=== PATIENT | female | born 1980 | race Caucasian/White ===

== ENCOUNTER 2020-12-18 21:03 | Emergency (ER) | payer OTHER ==
[~2020-12-18] VITALS: Ht 170.2 cm; Wt 77.1 kg
[~2020-12-18 21:03] MED LIST: PREDNISONE20 MG PO; ZITHROMAX TRI-500 MG PO
[2020-12-18] MEDS ORDERED: KETOROLAC TROMETHAMINE 60 MG/2 ML VIAL IM ONE (21:45)
[2020-12-18] MEDS ORDERED: ONDANSETRON HCL 4 MG ORAL DISINTEGRATING TAB PO ONE (21:45)
[2020-12-18] MEDS ORDERED: METHYLPREDNISOLONE SOD SUCC 125 MG/2ML VIAL IM ONE (21:45)
[2020-12-18] MEDS ORDERED: KETOROLAC TROMETHAMINE 60 MG/2 ML VIAL ONE (22:03)
[2020-12-18] MEDS ORDERED: ONDANSETRON HCL 4 MG ORAL DISINTEGRATING TAB ONE (22:03)
[2020-12-18] MEDS ORDERED: METHYLPREDNISOLONE SOD SUCC 125 MG/2ML VIAL ONE (22:03)
[2020-12-18] MEDS ORDERED: BROMFED DM COU118 ML PO (22:49)
[2020-12-18] MEDS ORDERED: IVERMECTIN3 MG PO (22:49)
[2020-12-18] MEDS ORDERED: PROAIR HFA INH8.5 GM PO (22:49)
[2020-12-18] MEDS ORDERED: AZITHROMYCIN500 MG PO (22:49)
[2020-12-18] MEDS ORDERED: PREDNISONE20 MG PO (22:49)
[2020-12-18] MEDS ORDERED: ALBUTEROL2.5 MG/3 M NEB (22:49)
[2020-12-18 23:15] VITALS: BP 124/84
== END 2020-12-18 23:13 | disposition home or self-care (01) ==
LOC: FSED 21:24
DX: U07.1 COVID-19 (principal); J18.9 Pneumonia, unspecified organism; R05 Cough; J98.01 Acute bronchospasm; R06.02 Shortness of breath
CPT/HCPCS: 71046; 96372; 99283; J1885; J2930; Q0162

== ENCOUNTER 2021-12-26 08:43 | Outpatient (RCR) | payer OTHER ==
[~2021-12-26 08:43] MED LIST changes: +ALBUTEROL2.5 MG/3 M NEB; +AZITHROMYCIN500 MG PO; +BROMFED DM COU118 ML PO; +IVERMECTIN3 MG PO; +PROAIR HFA INH8.5 GM PO
== END 2021-12-31 ==
LOC: OT 08:43
PROVIDERS: ATTEND Plastic Surgery
DX: M18.12 Unilateral primary osteoarthritis of first carpometacarpal joint, left hand (principal); M25.542 Pain in joints of left hand

== ENCOUNTER → 2022-03-12 | Day surgery (SDC) | payer OTHER ==
[~2022-03-12] MED LIST changes: +BUPIVACAINE 0.25% 30ML SDV ONE; +BUPIVACAINE HCL 0.5% 10ML MPF VIAL INJ ONE; +DEXAMETHASONE SOD PHOS INJ 4 MG/ML SDV ONE; +FENTANYL CITRATE/PF 100MCG/2 ML INJ ONE; +HYDROCODON-ACE1 EA11 PO; +KETOROLAC TROMETHAMINE 30 MG/ML VIAL ONE; +LIDOCAINE HCL 2% LOCAL INJ 5 ML SDV VIAL INJ ONE; +METOCLOPRAMIDE HCL 10 MG/2ML VIAL ONE; +MIDAZOLAM HCL 2 MG/2 ML VIAL ONE; +MUPIROCIN 2% OINT 22 GM TUBE ONE; +ONDANSETRON HCL INJ 2MG/ML 2ML 2 MG/ML VIAL ONE; +POVIDONE IODINE 0.05% 0.05 % ML PO ONE; +PROMETHAZINE HCL (IM) 25 MG/ML VIAL IM ONE; +PROPOFOL IV EMULSION 10 MG/ML 20 ML VIAL ONE; +SEVOFLURANE INHAL SOLN 250 ML PEN BTL ONE; +SODIUM CHLORIDE 0.9% 50ML 50 ML ONE
[2022-03-12 10:50] VITALS: BP 118/69
== END | disposition home or self-care (01) ==
LOC: OR 05:33
PROVIDERS: ATTEND Plastic Surgery
DX: S63.042A Subluxation of carpometacarpal joint of left thumb, initial encounter (principal); M65.842 Other synovitis and tenosynovitis, left hand; N20.0 Calculus of kidney; Z01.812 Encounter for preprocedural laboratory examination; Z20.822 Contact with and (suspected) exposure to COVID-19
CPT/HCPCS: 25310; 25447; 81025; C1713; J0690; J1100; J1885; J2001; J2405; J2550; J2704; J2765; U0002; J2250; J3010

== ENCOUNTER 2022-04-26 10:45 | Outpatient (RCR) | payer OTHER ==
[~2022-04-26 10:45] MED LIST changes: -BUPIVACAINE 0.25% 30ML SDV ONE; -BUPIVACAINE HCL 0.5% 10ML MPF VIAL INJ ONE; -DEXAMETHASONE SOD PHOS INJ 4 MG/ML SDV ONE; -FENTANYL CITRATE/PF 100MCG/2 ML INJ ONE; -KETOROLAC TROMETHAMINE 30 MG/ML VIAL ONE; -LIDOCAINE HCL 2% LOCAL INJ 5 ML SDV VIAL INJ ONE; -METOCLOPRAMIDE HCL 10 MG/2ML VIAL ONE; -MIDAZOLAM HCL 2 MG/2 ML VIAL ONE; -MUPIROCIN 2% OINT 22 GM TUBE ONE; -ONDANSETRON HCL INJ 2MG/ML 2ML 2 MG/ML VIAL ONE; -POVIDONE IODINE 0.05% 0.05 % ML PO ONE; -PROMETHAZINE HCL (IM) 25 MG/ML VIAL IM ONE; -PROPOFOL IV EMULSION 10 MG/ML 20 ML VIAL ONE; -SEVOFLURANE INHAL SOLN 250 ML PEN BTL ONE; -SODIUM CHLORIDE 0.9% 50ML 50 ML ONE
== END 2022-04-30 ==
LOC: OT 10:45
PROVIDERS: ATTEND Plastic Surgery
DX: M18.12 Unilateral primary osteoarthritis of first carpometacarpal joint, left hand (principal); M25.542 Pain in joints of left hand; M25.642 Stiffness of left hand, not elsewhere classified; R53.1 Weakness
CPT/HCPCS: 97165; L3808

== ENCOUNTER 2022-05-01 11:35 | Outpatient (RCR) | payer OTHER | END 2022-05-30 | LOC: OT 11:35 | PROVIDERS: ATTEND Plastic Surgery | DX: M18.12 Unilateral primary osteoarthritis of first carpometacarpal joint, left hand (principal); M25.542 Pain in joints of left hand; M25.642 Stiffness of left hand, not elsewhere classified; R53.1 Weakness ==

== ENCOUNTER 2022-05-29 08:57 | Outpatient (RCR) | payer OTHER | END 2022-05-30 | LOC: OT 08:57 | PROVIDERS: ATTEND Plastic Surgery | DX: M18.12 Unilateral primary osteoarthritis of first carpometacarpal joint, left hand (principal); M25.542 Pain in joints of left hand; M25.642 Stiffness of left hand, not elsewhere classified; R53.1 Weakness ==

== ENCOUNTER 2022-06-18 07:57 | Outpatient (RCR) | payer OTHER | END 2022-06-30 | LOC: OT 07:57 | PROVIDERS: ATTEND Plastic Surgery | DX: M18.12 Unilateral primary osteoarthritis of first carpometacarpal joint, left hand (principal); M25.542 Pain in joints of left hand; M25.642 Stiffness of left hand, not elsewhere classified; R53.1 Weakness ==